=== PATIENT | female | born 1970 | race Caucasian/White ===

== ENCOUNTER 2018-01-03 12:01 | Emergency (ER) | payer OTHER ==
[2018-01-03] MEDS: IBUPROFEN 800 MG TAB PO (12:25)
== END 2018-01-03 13:52 | disposition home or self-care (01) ==
LOC: FTE 12:01
DX: M25.561 Pain in right knee (principal)
CPT/HCPCS: 73562; 99283-25

== ENCOUNTER 2018-03-20 08:32 | Emergency (ER) | payer OTHER ==
[2018-03-20] MEDS: IBUPROFEN 800 MG TAB PO (09:13)
== END 2018-03-20 09:49 | disposition home or self-care (01) ==
LOC: FTE 08:32
DX: M79.645 Pain in left finger(s) (principal)
CPT/HCPCS: 73140; 99283-25

== ENCOUNTER 2018-06-25 17:46 | Emergency (ER) | payer OTHER ==
[2018-06-25] MEDS: IBUPROFEN 800 MG TAB PO (18:39)
== END 2018-06-25 20:34 | disposition home or self-care (01) ==
LOC: FTE 17:46
DX: S16.1XXA Strain of muscle, fascia and tendon at neck level, initial encounter (principal); S09.90XA Unspecified injury of head, initial encounter; S39.92XA Unspecified injury of lower back, initial encounter; S49.92XA Unspecified injury of left shoulder and upper arm, initial encounter; V49.40XA Driver injured in collision with unspecified motor vehicles in traffic accident, initial encounter
CPT/HCPCS: 72040; 72100; 73030; 81025; 99284-25

== ENCOUNTER 2018-07-07 19:11 | Emergency (ER) | payer OTHER ==
[2018-07-07] MEDS: SOD CHLORIDE 0.9% 1,000 ML IV (20:46)
[2018-07-07] MEDS: DIPHENHYDRAMINE 50 MG INJ IV (20:46)
[2018-07-07] MEDS: METOCLOPRAMIDE 10 MG INJ IV (20:46)
[2018-07-07 20:59] LABS: ADD UMIC YES; UR ASCORBIC ACID NEGATIVE (NEGATIVE); UR BILIRUBIN (Dip) NEGATIVE (NEGATIVE); UR BLOOD (Dip) 2+ mg/dL (NEGATIVE); UR CLARITY CLEAR (CLEAR); UR COLOR YELLOW (YELLOW); UR GLUCOSE (Dip) NEGATIVE (NEGATIVE); UR KETONES (Dip) NEGATIVE (NEGATIVE); UR LEUKOCYTE ESTERASE (Dip) NEGATIVE Leu/ul (NEGATIVE); UR NITRITE (Dip) NEGATIVE (NEGATIVE); UR RBC 28 /HPF (0-5); UR SPECIFIC GRAVITY (Dip) 1.025 (1.003-1.030); UR TOTAL PROTEIN (Dip) NEGATIVE (NEGATIVE); UR UROBILINOGEN (Dip) 1+ mg/dL (NEGATIVE); UR WBC 2 /HPF (0-5)
== END 2018-07-07 23:03 | disposition home or self-care (01) ==
LOC: FTE 19:11
DX: G43.909 Migraine, unspecified, not intractable, without status migrainosus (principal); L30.9 Dermatitis, unspecified
CPT/HCPCS: 81001; 81025; 93005; 96374; 96375; 99284-25